=== PATIENT | female | born 1980 | race American Indian/Alaskan Native ===

== ENCOUNTER 2016-11-15 18:23 | Emergency (ER) | payer SELFPAY ==
--- NOTE | 2016-11-16 01:58 | Emergency Department Report ---
ED ENT HPI - General Chief complaint: Earache Stated complaint: LT EARACHE Time Seen by Provider: 11/16/16 01:32 Source: patient Mode of arrival: Ambulatory Limitations: No Limitations - History of Present Illness Initial comments: 36-year-old female past medical history recurrent ear infections presents with complaint of left-sided earache for approximately 2 weeks. She states that she was in the ED received antibiotic eardrops but symptoms have worsened. Patient denies any decrease in her hearing. States that she has earache and has become more intense since she was last seen. Has been using Motrin with little to no relief of her pain. Denies any significant fever or chills reports no other symptoms denies any significant drainage from left ear but states she had slight clear fluid in the last few days MD complaint: ear pain Onset/Timin -: week(s) Location: L ear Severity: moderate Severity scale (0 -10): 6 Quality: aching Consistency: constant Improves with: NSAID Worsens with: none Context- Ear: recent illness Associated Symptoms: discharge from ear - Related Data Previous Rx's Medication Instructions Recorded Last Taken Type Butalb/Acetaminophen/Caffeine 1 each PO Q6HR #10 capsule 08/29/14 Unknown Rx [Fioricet 50-300-40 mg Capsule] Sulfamethoxazole/Trimethoprim 1 each PO BID #14 tablet 08/29/14 Unknown Rx [Bactrim Ds] Fluticasone [Flonase] 1 spray NS QDAY #1 bottle 10/12/16 Unknown Rx Ibuprofen [Motrin 600 MG tab] 600 mg PO Q8H PRN #14 tablet 10/12/16 Unknown Rx Loratadine [Claritin] 10 mg PO DAILY #20 tablet 10/12/16 Unknown Rx Neomy/Polymyx B/Hc Otic Susp 4 drops OTIC TID #1 bottle 10/12/16 Unknown Rx [Cortisporin (Otic) Susp] Amoxicillin/K Clav Tab [Augmentin 1 tab PO Q12HR #20 tab 11/16/16 Unknown Rx 875 mg] Ibuprofen [Motrin] 600 mg PO Q8H PRN #30 tablet 11/16/16 Unknown Rx Allergies Allergy/AdvReac Type Severity Reaction Status Date / Time No Known Allergies Allergy Verified 11/15/16 18:56 ED Dental HPI - General Chief complaint: Earache Stated complaint: LT EARACHE Time Seen by Provider: 11/16/16 01:32 Source: patient Mode of arrival: Ambulatory Limitations: No Limitations - Related Data Previous Rx's Medication Instructions Recorded Last Taken Type Butalb/Acetaminophen/Caffeine 1 each PO Q6HR #10 capsule 08/29/14 Unknown Rx [Fioricet 50-300-40 mg Capsule] Sulfamethoxazole/Trimethoprim 1 each PO BID #14 tablet 08/29/14 Unknown Rx [Bactrim Ds] Fluticasone [Flonase] 1 spray NS QDAY #1 bottle 10/12/16 Unknown Rx Ibuprofen [Motrin 600 MG tab] 600 mg PO Q8H PRN #14 tablet 10/12/16 Unknown Rx Loratadine [Claritin] 10 mg PO DAILY #20 tablet 10/12/16 Unknown Rx Neomy/Polymyx B/Hc Otic Susp 4 drops OTIC TID #1 bottle 10/12/16 Unknown Rx [Cortisporin (Otic) Susp] Amoxicillin/K Clav Tab [Augmentin 1 tab PO Q12HR #20 tab 11/16/16 Unknown Rx 875 mg] Ibuprofen [Motrin] 600 mg PO Q8H PRN #30 tablet 11/16/16 Unknown Rx Allergies Allergy/AdvReac Type Severity Reaction Status Date / Time No Known Allergies Allergy Verified 11/15/16 18:56 ED Review of Systems ROS: Stated complaint: LT EARACHE Other details as noted in HPI Constitutional: denies: chills, fever Eyes: denies: eye pain, eye discharge, vision change ENT: ear pain (2 weeks of left-sided ear pain). denies: throat pain Respiratory: denies: cough, shortness of breath, wheezing Cardiovascular: denies: chest pain, palpitations Endocrine: no symptoms reported Gastrointestinal: denies: abdominal pain, nausea, diarrhea Genitourinary: denies: urgency, dysuria, discharge Musculoskeletal: denies: back pain, joint swelling, arthralgia Skin: denies: rash, lesions Neurological: denies: headache, weakness, paresthesias Psychiatric: denies: anxiety, depression Hematological/Lymphatic: denies: easy bleeding, easy bruising ED Past Medical Hx - Past Medical History Hx Headaches / Migraines: Yes - Surgical History Past Surgical History?: No - Social History Smoking Status: Never Smoker Substance Use Type: Alcohol - Medications Home Medications: Home Medications Medication Instructions Recorded Confirmed Last Taken Type Butalb/Acetaminophen/Caffeine 1 each PO Q6HR #10 capsule 08/29/14 Unknown Rx [Fioricet 50-300-40 mg Capsule] Sulfamethoxazole/Trimethoprim 1 each PO BID #14 tablet 08/29/14 Unknown Rx [Bactrim Ds] Fluticasone [Flonase] 1 spray NS QDAY #1 bottle 10/12/16 Unknown Rx Ibuprofen [Motrin 600 MG tab] 600 mg PO Q8H PRN #14 tablet 10/12/16 Unknown Rx Loratadine [Claritin] 10 mg PO DAILY #20 tablet 10/12/16 Unknown Rx Neomy/Polymyx B/Hc Otic Susp 4 drops OTIC TID #1 bottle 10/12/16 Unknown Rx [Cortisporin (Otic) Susp] Amoxicillin/K Clav Tab [Augmentin 1 tab PO Q12HR #20 tab 11/16/16 Unknown Rx 875 mg] Ibuprofen [Motrin] 600 mg PO Q8H PRN #30 tablet 11/16/16 Unknown Rx ED Physical Exam - General Limitations: No Limitations General appearance: alert, in no apparent distress - Head Head exam: Present: atraumatic, normocephalic - Eye Eye exam: Present: normal appearance, PERRL, EOMI - ENT ENT exam: Present: mucous membranes moist - Expanded ENT Exam Expanded TM/Canal exam: Erythema: Left TM, Bulging: Left TM, Effusion: Left TM (visible effusion and injection of left tympanic membrane no perforation, bulging, no significant otorrhea, patient has no mastoid tenderness or mastoid cellulitis on bilateral exam) Mouth exam: Present: normal external inspection Teeth exam: Present: normal inspection Throat exam: Positive: normal inspection - Neck Neck exam: Present: normal inspection, full ROM - Respiratory Respiratory exam: Present: normal lung sounds bilaterally. Absent: respiratory distress - Cardiovascular Cardiovascular Exam: Present: regular rate, normal rhythm. Absent: systolic murmur, diastolic murmur, rubs, gallop - GI/Abdominal GI/Abdominal exam: Present: soft, normal bowel sounds - Extremities Exam Extremities exam: Present: normal inspection - Back Exam Back exam: Present: normal inspection - Neurological Exam Neurological exam: Present: alert, oriented X3 - Psychiatric Psychiatric exam: Present: normal affect, normal mood - Skin Skin exam: Present: warm, dry, intact, normal color. Absent: rash ED Course Vital Signs 11/15/16 11/16/16 18:45 02:14 Temperature 98.5 F 98.6 F Pulse Rate 62 68 Respiratory 17 18 Rate Blood Pressure 143/98 Blood Pressure 132/88 [Left] O2 Sat by Pulse 100 100 Oximetry ED Medical Decision Making - Medical Decision Making A/P: Otitis media 1-patient failed therapy for otitis externa with Corticosporin drops, visible effusion left tympanic membrane will treat empirically with ten-day course of Augmentin 2-patient has no clinical signs of mastoiditis no signs of tympanic membrane rupture, hearing intact to whisper test 3-follow-up with primary care and ENT 4-advised patient to return to the ED if she has any significant drainage from ear if symptoms worsen within the next few days despite antibiotic use or he develops 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 Patient expressed full understanding of these instructions Critical care attestation.: If time is entered above; I have spent that time in minutes in the direct care of this critically ill patient, excluding procedure time. ED Disposition Clinical Impression: Otitis media Qualifiers: Otitis media type: suppurative Laterality: left Chronicity: acute Recurrence: recurrent Spontaneous tympanic membrane rupture: without spontaneous rupture Qualified Code(s): H66.005 - Acute suppurative otitis media without spontaneous rupture of ear drum, recurrent, left ear Disposition: DISCHARGED TO HOME OR SELFCARE Is pt being admited?: No Does the pt Need Aspirin: No Condition: Stable Instructions: Otitis Media (ED) Prescriptions: Amoxicillin/K Clav Tab [Augmentin 875 mg] 1 tab PO Q12HR #20 tab Ibuprofen [Motrin] 600 mg PO Q8H PRN #30 tablet PRN Reason: Pain Referrals: MERCY FIERRO MD [Staff Physician] [facility] - 3-5 Days ENT [facility] [Provider Group] - 3-5 Days CHRISTINE AVALOS MD [Staff Physician] - 3-5 Days Forms: Work/School Release Form(ED) Time of Disposition: 02:02
[2016-11-16] MEDS ORDERED: AUGMENTIN 875 MG PO ONE (01:59)
[2016-11-16] MEDS ORDERED: MOTRIN PO ONE (01:59)
[2016-11-16 02:15] VITALS: BP 132/88
== END 2016-11-16 02:16 | disposition home or self-care (01) ==
LOC: ED 18:23
DX: H66.005 Acute suppurative otitis media without spontaneous rupture of ear drum, recurrent, left ear (principal); G43.909 Migraine, unspecified, not intractable, without status migrainosus
CPT/HCPCS: 99282